=== PATIENT | male | born 1930 | race Asian ===

== ENCOUNTER 2018-07-17 18:02 | Emergency (ER) | payer OTHER ==
[~2018-07-17] VITALS: Ht 167.6 cm; Wt 47.6 kg
[2018-07-17 18:24] VITALS: BP_SYST 104
[2018-07-17] MEDS ORDERED: KETOROLAC TROMETHAMINE 30 MG VIAL IM ONE (21:45)
[2018-07-17] MEDS ORDERED: traMADol HCL HCL 50 MG TABLET (ULTRAM) PO ONE (23:00)
[2018-07-17 23:25] VITALS: BP_SYST 100
== END 2018-07-17 23:25 | disposition home or self-care (01) ==
LOC: SED 18:02
DX: M25.551 Pain in right hip (principal)
CPT/HCPCS: 74176; 96372; 99284; J1885